=== PATIENT | male | born 1960 | race American Indian/Alaskan Native ===

== ENCOUNTER 2017-07-25 01:00 | Emergency (ER) | payer SELFPAY ==
[2017-07-25] MEDS ORDERED: Dextrose 50% SYRINGE Inj (50 ml) ONE (01:16)
[2017-07-25 06:44] LABS: BLOOD UREA NITROGEN 36 mg/dl (9-20); CALCIUM 8.6 mg/dL (8.4-10.2); CARBON DIOXIDE 29 mmol/L (22-30); CHLORIDE 105 mmol/L (98-107); GFR AFRICAN-AMERICAN > 60; POTASSIUM 3.9 MMOL/L (3.6-5.0); SODIUM 138 mmol/l (132-148)
[2017-07-25 06:51] LABS: GLUCOSE,RANDOM 37 mg/dL (75-110)
[2017-07-25 08:07] LABS: BASO # 0.1 K/uL (0.0-0.2); BASO % 1.1 % (0.0-2.0); EOS # 0.1 K/uL (0.0-0.7); EOS % 1.3 % (0.0-4.0); HEMATOCRIT 36.1 % (35.0-51.0); LYMPH # 1.5 K/uL (1.0-4.3); LYMPH % 25.2 % (20.0-40.0); MEAN CELL VOLUME 83.2 fl (80.0-94.0); MEAN CORPUSCULAR HEMOGLOBIN 26.8 pg (27.0-31.0); MEAN CORPUSCULAR HGB CONC 32.3 g/dL (33.0-37.0); MEAN PLATELET VOLUME 9.9 fl (7.2-11.7); MONO # 0.7 K/uL (0.0-0.8); MONO % 11.1 % (0.0-10.0); NEUT # 3.7 K/uL (1.8-7.0); NEUT % 61.3 % (50.0-75.0); NRBC % 0.2 % (0.0-0.0); RED CELL DISTRIBUTION WIDTH 14.3 % (11.5-14.5)
== END 2017-07-25 02:00 | disposition home or self-care (01) ==
LOC: H.EDDOWN 01:00
DX: E11.9 Type 2 diabetes mellitus without complications (principal)